=== PATIENT | male | born 1970 | race Caucasian/White ===

== ENCOUNTER 2023-09-23 18:25 | Emergency (ER) | payer OTHER, SELFPAY ==
[2023-09-23 18:26] VITALS: BP 151/109; PULSE 106; RESP 20; TEMP 36.9; O2SAT 98; BMI 28.1
--- NOTE | 2023-09-23 18:38 | XR_ITS ---
PROCEDURE INFORMATION: Exam: XR Right Hand Exam date and time: 09/23/2023 6:41 PM Age: 53 years old Clinical indication: Injury or trauma; Other: Bites; Arm, lower; Bilateral; Additional info: Multiple dog bites TECHNIQUE: Imaging protocol: Radiologic exam of the right hand. Views: 3 or more views. COMPARISON: CR XR HAND RT MIN 3V 09/23/2023 6:41 PM FINDINGS: Bones/joints: Normal. Soft tissues: Normal. IMPRESSION: No acute findings.
--- NOTE | 2023-09-23 18:38 | XR_ITS ---
PROCEDURE INFORMATION: Exam: XR Left Wrist Exam date and time: 09/23/2023 6:41 PM Age: 53 years old Clinical indication: Injury or trauma; Other: Bites; Wrist; Bilateral; Additional info: Multiple dog bites TECHNIQUE: Imaging protocol: Radiologic exam of the left wrist. Views: 3 or more views. COMPARISON: CR XR HAND LT MIN 3V 09/23/2023 6:41 PM FINDINGS: Bones/joints: Normal. Soft tissues: Soft tissue gas over the dorsal aspect of the wrist. IMPRESSION: 1. No acute fracture or dislocation. 2. Soft tissue gas over the dorsal aspect of the wrist.
--- NOTE | 2023-09-23 18:38 | XR_ITS ---
PROCEDURE INFORMATION: Exam: XR Right Wrist Exam date and time: 09/23/2023 6:41 PM Age: 53 years old Clinical indication: Right wrist pain. Additional info: Multiple dog bites TECHNIQUE: Imaging protocol: Radiologic exam of the right wrist. Views: 3 or more views. COMPARISON: CR XR HAND RT MIN 3V 09/23/2023 6:41 PM FINDINGS: Bones/joints: Normal. Soft tissues: Normal. IMPRESSION: No acute findings.
--- NOTE | 2023-09-23 18:38 | XR_ITS ---
PROCEDURE INFORMATION: Exam: XR Left Hand Exam date and time: 09/23/2023 6:41 PM Age: 53 years old Clinical indication: Injury or trauma; Other: Bites; Hand; Bilateral; Additional info: Multiple dog bites TECHNIQUE: Imaging protocol: Radiologic exam of the left hand. Views: 3 or more views. COMPARISON: CR XR FOREARM LT 2V 09/23/2023 6:41 PM FINDINGS: Bones/joints: No acute fracture or dislocation. Old healed fracture of the distal 5th metacarpal. Soft tissues: Small foci of soft tissue gas in the hand and wrist. IMPRESSION: 1. No acute fracture or dislocation. 2. Small foci of soft tissue gas in the hand and wrist.
--- NOTE | 2023-09-23 18:38 | XR_ITS ---
PROCEDURE INFORMATION: Exam: XR Left Forearm Exam date and time: 09/23/2023 6:41 PM Age: 53 years old Clinical indication: Injury or trauma; Other: Bites; Wrist; Bilateral; Additional info: Multiple dog bites TECHNIQUE: Imaging protocol: Radiologic exam of the left forearm. Views: 2 views. COMPARISON: CR XR FOREARM RT 2V 09/23/2023 6:41 PM FINDINGS: Bones/joints: Normal. Soft tissues: Soft tissue gas over the dorsal aspect of the distal forearm. IMPRESSION: 1. No fracture. 2. Soft tissue gas over the dorsal aspect of the distal forearm.
--- NOTE | 2023-09-23 18:38 | XR_ITS ---
PROCEDURE INFORMATION: Exam: XR Right Forearm Exam date and time: 09/23/2023 6:41 PM Age: 53 years old Clinical indication: Injury or trauma; Other: Bites; Arm, lower; Bilateral; Additional info: Multiple dog bites TECHNIQUE: Imaging protocol: Radiologic exam of the right forearm. Views: 2 views. COMPARISON: CR XR FOREARM LT 2V 09/23/2023 6:41 PM FINDINGS: Bones/joints: Normal. Soft tissues: Normal. IMPRESSION: No acute findings.
[2023-09-23] MEDS: ONDANSETRON 4MG/2ML VIAL 4 MG IV (18:53)
[2023-09-23] MEDS: KETOROLAC 30MG/ML VIAL 15 MG IV (18:53)
[2023-09-23] MEDS: MORPHINE 4MG/ML SYRINGE 4 MG IV (18:54)
[2023-09-23] MEDS: ACETAMINOPHEN 500MG TAB 1000 MG PO (18:54)
--- NOTE | 2023-09-23 18:57 | ED_ITS ---
Discharge Plan Disposition Patient Disposition: Xfer Short-Term Hosp Condition: Good Referrals Follow up/Referrals: Provider,Referral, [Primary Care Provider] - See instructions Activity Restrictions/Add. Instructions Additional Instructions/Restrictions: Please proceed directly to [facility] emergency department. Clinical Impressions Clinical Impression: Dog bite Instructions Patient Instructions: Animal Bites Print Language Print Language: Wolof Discharge ED Provider: Lina Jennings Adult HPI General Chief complaint: Animal Bite Stated complaint: Dog Bite Time Seen by Provider: 09/23/23 18:37 Mode of Arrival: EMS Source of Information: Patient Limitations: No Limitations Description of Symptoms (Recalled from ER Triage Doc. by RN): pt is [employer] that was bit by a police dog today, pt has several punctures to left hand and arm, edges are approximate, animal and officer are both up to date on vaccines History of Present Illness HPI narrative: This patient is a 53-year-old male who is a [employer] presenting with concern for multiple dog bites. Patient was bitten multiple times by a police dog. Both the officer and the dog are up-to-date on vaccinations. He has multiple wounds to his bilateral upper extremities, but the wounds are worse on his left upper extremity. He complains of the most pain in his left hand at this time. No numbness, tingling, or other concerns. He was well prior to this. Patient arrives by EMS who noted he was stable en route. Related Data Allergies Allergy/AdvReac Type Severity Reaction Status Date / Time No Known Allergies Allergy Verified 09/23/23 18:43 [facility] Disclaimer: The information contained in this section may have been updated after the patient was seen, as this information can be updated by other users. Social History Smoking Status: Never smoker alcohol intake: never current occupational status: employed Travel in the last 8 weeks: None ROS Obtained: Yes All systems reviewed & no additional complaints except as documented Physical Exam General General appearance: alert and in no apparent distress Head Head exam: atraumatic and normocephalic Eye Eye exam: Present normal appearance, PERRL and EOMI ENT ENT exam: Present normal exam, normal oropharynx, mucous membranes moist and normal external ear exam Neck Neck exam: Present normal inspection, full ROM and trachea midline; Absent tenderness Chest Chest inspection: Present normal inspection and symmetric chest wall rise; Absent tenderness Respiratory Respiratory exam: Present normal lung sounds bilaterally; Absent respiratory distress, wheezes, stridor or accessory muscle use Cardiovascular Cardiovascular exam: Present regular rate and normal rhythm Abdominal Exam Abdominal exam: Present soft; Absent distention, tenderness or guarding Extremities Exam Extremities exam: Present full ROM, tenderness, normal capillary refill and edema Expanded Upper Extremity Exam Left: Arm exam: Present tenderness, swelling, abrasion and laceration Hand exam: Present tenderness, swelling, abrasion and laceration Hand L/R front image: 2 1. laceration (3cm curvilinear laceration with significant soft tissue swelling) Hand L/R back image: 2 1. 1.5 cm laceration 2. multiple scattered abrasions 3. multiple scattered abrasions L/R Arms Top View: 2 1. 3 cm curvilinear laceration L/R Arms Bottom View: 2 1. 3 cm irregular stellate soft tissue injury Comment: Please see chart above for extensive lacerations and wounds to the bilateral upper extremities. All compartments are soft. He is neurovascularly intact distally in both upper extremities with full intact range of motion. Back Exam Back exam: Present normal inspection and full ROM; Absent tenderness Neurological Exam Neurological exam: Present alert, oriented X3, CN II-XII intact and normal gait; Absent motor sensory deficit Psychiatric Psychiatric exam: Present normal affect and normal mood Skin Skin exam: Present warm and dry Medical Decision Making Medical Records Medical records reviewed: Yes I reviewed the patient's medical records. Jaylen Inquiry Pt receiving controlled substance: No Vital Signs: 09/23/23 18:26 Temperature 98.4 F Temperature Source Oral Pulse Rate [Right Radial] 106 H Respiratory Rate 20 Blood Pressure [Right Arm] 151/109 H Blood Pressure Mean [Right Arm] 123 02 Sat by Pulse Oximetry 98 Oxygen Delivery Method Room Air Lab Data Lab results reviewed: Yes I reviewed the patient's lab results. Orders (Tests/Meds): ED MEDICATIONS Discontinued Medications Generic Name Dose Route Start Last Admin Trade Name Freq PRN Reason Stop Dose Admin Acetaminophen 1,000 mg 09/23/23 18:37 09/23/23 18:54 Acetaminophen 500mg Tab PO 09/23/23 18:38 1,000 mg ONCE ONE Administration Hydromorphone HCl 1 mg 09/23/23 19:23 09/23/23 19:37 Hydromorphone 2mg/Ml Syringe IV 09/23/23 19:24 1 mg ONCE ONE Administration Ampicillin Sodium/Sulbactam 100 mls @ 200 mls/hr 09/23/23 18:37 09/23/23 19:11 Sodium 3 gm/ Sodium Chloride IV 09/23/23 18:38 200 mls/hr ONCE ONE Administration Ketorolac Tromethamine 15 mg 09/23/23 18:37 09/23/23 18:53 Ketorolac 30mg/Ml Vial IV 09/23/23 18:38 15 mg ONCE ONE Administration Morphine Sulfate 4 mg 09/23/23 18:37 09/23/23 18:54 Morphine 4mg/Ml Syringe IV 09/23/23 18:38 4 mg ONCE ONE Administration Ondansetron HCl 4 mg 09/23/23 18:37 09/23/23 18:53 Ondansetron 4mg/2ml Vial IV 09/23/23 18:38 4 mg ONCE ONE Administration ORDERS Category Date Time Status Forearm XR left 2 views [XR forearm LT 2V] Stat Exams 09/23/23 18:38 Completed Forearm XR right 2 views [XR forearm RT 2V] Stat Exams 09/23/23 18:38 Completed Hand XR left minimum 3 views [XR hand LT min 3V] Stat Exams 09/23/23 18:38 Completed Hand XR right minimum 3 views [XR hand RT min 3V] Stat Exams 09/23/23 18:38 Completed Wrist XR left minimum 3 views [XR wrist LT min 3V] Stat Exams 09/23/23 18:38 Completed Wrist XR right minimum 3 views [XR wrist RT min 3V] Exams 09/23/23 18:38 Completed Stat Medical Decision Narrative: In summary, this patient is a 53-year-old male presenting to the Emergency Department for evaluation of dog bites to the bilateral upper extremities. Differential diagnoses considered include but are not limited to dog bite, laceration, open fracture, foreign body, neurovascular injury, ligamentous injury. Ruling out the most morbid conditions drove assessment. On exam, the patient is uncomfortable appearing with multiple wounds to his bilateral upper extremities as detailed in physical exam. He is neurovascularly intact in both upper extremities and has full intact range of motion. Wounds are hemostatic. Workup included x-rays of the bilateral upper extremities. He was given IV morphine, IV Toradol, oral Tylenol, and IV Unasyn. He is up-to-date on tetanus, and the dog is up-to-date on vaccinations. I independently interpreted x-rays prior to the radiologist read and noted acute fracture. Please see their read for final interpretation. Patient had actually requested that EMS take him to but they were already en route here, so they brought the patient here. He request transfer there as opposed to repair of his wounds here. I do feel that this is appropriate, as the patient has gas visible in the left wrist and a laceration overlying the joint. He could potentially have an open left wrist joint, however unable to tell based simply on my exam. Given this, conversations initiated with [facility] at 1910. Patient still has significant pain, so he was given IV Dilaudid. I had an interactive discussion with Dr. Short at the [facility] who accepted the patient to [facility] for evaluation. Prior to transport, patient's wounds were irrigated with saline and Betadine. Wounds were dressed with nonstick gauze and sterile dressing. I advised the patient he was accepted to and offered ambulance transport for continued monitoring and pain control. He elects to go POV at this time. He understands instructions to proceed directly to and risk should he not. He was given oral oxycodone prior to transfer. 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 Patient left in stable condition to go to for evaluation with concern for multiple lacerations from dog bite. Critical Care Critical Care Time Critical Care Time: No
[2023-09-23] MEDS: AMPICILLIN SODIUM/SULBACTAM 3 GM in 0.9 % SODIUM CHLORIDE 100 ML IV (19:11)
--- NOTE | 2023-09-23 19:19 | PC.NURSE ---
Contacted in regards to a transfer for this person they advised the providers were busy and they will call us back.
[2023-09-23] MEDS: HYDROMORPHONE 2MG/ML SYRINGE 1 MG IV (19:37)
--- NOTE | 2023-09-23 19:54 | PC.NURSE ---
wounds cleaned with betadine and saline per orders at 1950
[2023-09-23] MEDS: OXYCODONE 5MG IMMEDIATE RELEASE TABLET 5 MG PO (20:09)
--- NOTE | 2023-09-23 20:13 | PC.NURSE ---
non adherant dressings placed on wounds and wrapped loosely with kerlix
[2023-09-23 20:25] VITALS: BP 120/79; PULSE 92; RESP 20; TEMP 36.7; O2SAT 96
--- NOTE | 2023-09-23 20:27 | PC.NURSE ---
fax animal bite form to [facility]
--- NOTE | 2023-09-23 20:34 | PC.NURSE ---
Called report to [facility] ED RN and answered all questions
--- NOTE | 2023-09-24 09:41 | PC.NURSE ---
Accessed pt chart to get a facesheet for EMS. CR
== END 2023-09-23 20:44 | disposition short-term general hospital (02) ==
PROVIDERS: Emergency Provider Emergency Medicine
DX: S61.451A Open bite of right hand, initial encounter (principal); S61.452A Open bite of left hand, initial encounter; S51.851A Open bite of right forearm, initial encounter; S51.852A Open bite of left forearm, initial encounter; M79.642 Pain in left hand; W54.0XXA Bitten by dog, initial encounter
CPT/HCPCS: 73090; 73110; 73130; 96374; 96375; 99285; J0295; J1170; J1885; J2270; J2405